=== PATIENT | male | born 2000 | race Caucasian/White ===

== ENCOUNTER 2018-01-25 13:06 | Emergency (ER) | payer BC ==
[~2018-01-25] VITALS: Ht 182.9 cm; Wt 104.3 kg
[2018-01-25] MEDS ORDERED: PREDNISONE 20 M20 MG PO (13:40)
[2018-01-25] MEDS ORDERED: CLEOCIN HCL150 MG PO (13:40)
[2018-01-25 14:17] VITALS: BP 134/82
== END 2018-01-25 14:18 | disposition home or self-care (01) ==
LOC: M.ERS 13:06
DX: J03.90 Acute tonsillitis, unspecified (principal)